=== PATIENT | female | born 1980 | race Caucasian/White ===

== ENCOUNTER 2019-04-21 11:12 | Emergency (ER) | payer OTHER ==
[~2019-04-21] VITALS: Ht 185.4 cm; Wt 49.9 kg
== END 2019-04-21 13:38 | disposition home or self-care (01) ==
LOC: ER 11:12
DX: S93.492A Sprain of other ligament of left ankle, initial encounter (principal); X50.3XXA Overexertion from repetitive movements, initial encounter; Y93.01 Activity, walking, marching and hiking; Y92.89 Other specified places as the place of occurrence of the external cause; Y99.8 Other external cause status